=== PATIENT | female | born 1980 | race Caucasian/White ===

== ENCOUNTER → 2017-05-26 | Outpatient (CLI) | payer BC ==
[~2017-05-26] MED LIST: AMIT50TA PO; GABA600T; INDO25CA; SOMA250T PO
--- NOTE | 2017-05-27 07:29 | REP ---
REASON: Pain times 2 weeks. No trauma. FINDINGS: The joint spaces are symmetric and relatively well maintained. There is no evidence of acute fracture or destructive osseous lesion. IMPRESSION: Negative. Signed by Cr Zacarias DO 05/27/2017 09:21 A
== END ==
LOC: M WUC 16:40
PROVIDERS: ATTEND Physician Assistant
DX: M79.671 Pain in right foot (principal)

== ENCOUNTER 2017-08-13 20:22 | Emergency (ER) | payer BC ==
[~2017-08-13] VITALS: Ht 162.6 cm; Wt 83.1 kg
[2017-08-13] MEDS ORDERED: SOMA250T PO (21:06)
[2017-08-13] MEDS ORDERED: AMIT50TA PO (21:06)
[2017-08-13] MEDS ORDERED: GABA600T (21:06)
[2017-08-13] MEDS ORDERED: INDO25CA (21:06)
[2017-08-13] MEDS ORDERED: METOCLOPRAMIDE INJ 10MG/2ML VIAL (J2765) IV ONE (21:45)
[2017-08-13] MEDS ORDERED: NS 1,000 ML IV ONE (21:45)
[2017-08-13 22:01] LABS: BASO % 0.3 % (0.0-1.0); EOS # 0.1 10^3/uL (0.0-0.50); EOS % 1.4 % (0.0-3.0); IMMATURE GRANULOCYTE % 0.2 % (0-0); LYMPH # 2.1 10^3/uL (1.5-4.5); MEAN CORPUSCULAR HEMOGLOBIN 31.3 pg (27.0-33.0); MEAN CORPUSCULAR HGB CONC 34.8 g/dl (32.0-36.5); MONO # 0.4 10^3/uL (0.0-0.8); MONO % 5.6 % (0.0-5.0); NEUTROPHILS # 3.9 10^3/uL (1.8-7.7); NEUTROPHILS % 60.5 % (36.0-66.0); PLATELET COUNT, AUTOMATED 321 10^3/uL (150-450); RED CELL DISTRIBUTION WIDTH 11.8 % (11.5-14.5); WHITE BLOOD COUNT 6.4 10^3/uL (4.0-10.0)
[2017-08-13 22:14] LABS: ANION GAP 6 MEQ/L (8-16); BLOOD UREA NITROGEN 10 MG/DL (7-18); CALCIUM LEVEL 8.8 MG/DL (8.5-10.1); CARBON DIOXIDE LEVEL 27 MEQ/L (21-32); CHLORIDE LEVEL 106 MEQ/L (98-107); CREATININE FOR GFR 0.76 MG/DL (0.55-1.02); GLOMERULAR FILTRATION RATE > 60.0 (>60); GLUCOSE, FASTING 86 MG/DL (70-105); SODIUM LEVEL 139 MEQ/L (136-145)
--- NOTE | 2017-08-13 23:30 | REPUSA ---
CT of the head Clinical history: Headache. Technique: Multiple axial CT images were obtained through the head without administration of contrast . Findings: The ventricles and sulci are symmetric bilaterally. There is no evidence of acute hemorrhag e or infarct. There is no midline shift, mass effect, or extra-axial fluid collection. The osseous st ructures are unremarkable. The visualized paranasal sinuses and mastoid air cells are clear. Impression: Negative study.
[2017-08-14 00:21] VITALS: BP 121/81
== END 2017-08-14 00:20 | disposition home or self-care (01) ==
LOC: M ED 20:22
DX: R51 Headache (principal); M54.81 Occipital neuralgia; Z79.899 Other long term (current) drug therapy; Z88.8 Allergy status to other drugs, medicaments and biological substances
CPT/HCPCS: 70450; 80048; 85025; 96361; 96374; 99283; J2765